=== PATIENT | female | born 1985 | race Caucasian/White ===

== ENCOUNTER 2016-10-10 03:57 | Emergency (ER) | payer BC ==
[2016-10-10 06:05] LABS: HEMOGLOBIN 11.7 gm/dl (12.3-15.3); RED BLOOD COUNT 4.67 M/UL (4.00-5.10); WHITE BLOOD COUNT 11.6 K/UL (4.5-11.0)
[2016-10-10 06:25] LABS: BUN/CREATININE RATIO 24 (0-10)
[2016-10-27] MEDS ORDERED: ZOLOFT50 MG PO (08:05)
[2016-10-27] MEDS ORDERED: FEROSUL325 MG PO (08:05)
[2016-10-27] MEDS ORDERED: BIRTH CONTROL PO (08:06)
[2016-10-27] MEDS ORDERED: VITAMIN D350000 UNIT PO (08:06)
[2016-10-27] MEDS ORDERED: NORCO 7.5-3251 EACH PO (11:24)
[2016-10-27] MEDS ORDERED: PERCOCET 5-3251 EACH PO (12:08)
== END 2016-10-10 08:59 | disposition home or self-care (01) ==
LOC: ER1 03:57
PROVIDERS: Emergency Medicine
DX: K80.70 Calculus of gallbladder and bile duct without cholecystitis without obstruction (principal); E28.2 Polycystic ovarian syndrome; F32.9 Major depressive disorder, single episode, unspecified; Z87.442 Personal history of urinary calculi
CPT/HCPCS: 36415; 71020; 80053; 81001; 83690; 84703; 85025; 87086; 96372; 96374; 99284; J0500; J2405; J7050; Q9962

== ENCOUNTER → 2016-10-27 | Day surgery (SDC) | payer BC ==
[~2016-10-27] MED LIST: BIRTH CONTROL PO; FEROSUL325 MG PO; NORCO 7.5-3251 EACH PO; PERCOCET 5-3251 EACH PO; VITAMIN D350000 UNIT PO; ZOLOFT50 MG PO
== END | disposition home or self-care (01) ==
LOC: OR 07:23
PROVIDERS: Surgery
PROC: 0FT44ZZ Resection of Gallbladder, Percutaneous Endoscopic Approach (ICD-10-PCS; principal; 2016-10-27 09:15)
DX: K80.10 Calculus of gallbladder with chronic cholecystitis without obstruction (principal); Z79.899 Other long term (current) drug therapy; Z87.442 Personal history of urinary calculi
CPT/HCPCS: 84703; J0295; J1200; J1885; J2250; J2405; J2710; J2765; J3010; J7030; J7050; J7120; Q9962

== ENCOUNTER 2020-06-11 10:29 | Emergency (ER) | payer BC ==
[2020-06-11 13:06] LABS: HEMOGLOBIN 12.6 gm/dl (12.3-15.3); RED BLOOD COUNT 4.79 M/UL (4.00-5.10); WHITE BLOOD COUNT 6.1 K/UL (4.5-11.0)
[2020-06-11 13:30] LABS: BUN/CREATININE RATIO 14 (0-10)
[2020-06-11] MEDS ORDERED: CEFUROXIME500 MG PO (14:36)
[2020-06-11] MEDS ORDERED: ZOFRAN4 MG PO (14:36)
== END 2020-06-11 14:55 | disposition home or self-care (01) ==
LOC: ER1 10:29
PROVIDERS: Physician Assistant
DX: N39.0 Urinary tract infection, site not specified (principal); I10 Essential (primary) hypertension; Z86.19 Personal history of other infectious and parasitic diseases; Z98.890 Other specified postprocedural states
CPT/HCPCS: 80053; 81001; 84703; 85025; 87086; 96374; 99283; J2405

== ENCOUNTER → 2020-07-11 | Outpatient (CLI) | payer BC ==
[~2020-07-11] MED LIST changes: +CEFUROXIME500 MG PO; +ZOFRAN4 MG PO
== END ==
LOC: KOH-I 07-08 11:00
DX: E01.0 Iodine-deficiency related diffuse (endemic) goiter (principal)
CPT/HCPCS: 76536